=== PATIENT | female | born 1980 | race Caucasian/White ===

== ENCOUNTER → 2023-04-07 10:28 | Outpatient (REF) | payer OTHER, SELFPAY | LOC: RCS 10:28 | PROVIDERS: ATTENDING PHYSICIAN Internal Medicine Cardiovascular Disease; FAMILY PHYSICIAN Nurse Practitioner Family | DX: R00.2 Palpitations (principal) | CPT/HCPCS: 93306 ==

== ENCOUNTER 2025-03-02 05:20 | Inpatient (IN) | payer OTHER, SELFPAY ==
[2025-03-01 23:59] VITALS: BP 124/70
[2025-03-02] VITALS (14 sets, daily range): BP systolic 93–119; BP diastolic 49–67; BMI 27.2
[2025-03-02 02:15] LABS: Hematocrit 22.4 % (37.0-47.0); Hemoglobin 7.5 g/dL (12.0-16.0); Mean Corp Hgb Conc. 33.5 g/dL (33.0-37.0); Mean Corpuscular Volume 89.2 fL (81.0-99.0); Nucleated Red Blood Cells % 0 %; Platelet Count 280 10^3/uL (130-400); Red Cell Dist. Width 13.0 % (11.5-14.5)
[2025-03-02 02:20] LABS: APTT 36.0 Sec (23.4-35.0)
[2025-03-02 02:29] LABS: COVID-19 Antigen Negative (Negative)
[2025-03-02 02:33] LABS: ALT (SGPT) 20 U/L (0-35); AST (SGOT) 25 U/L (14-36); Albumin 3.1 g/dl (3.5-5.0); Alkaline Phosphatase 70 U/L (38-126); Blood Urea Nitrogen 15 mg/dl (7-17); Calcium 8.7 mg/dl (8.4-10.2); Carbon Dioxide 23 mmol/L (22-30); Chloride 104 mmol/L (98-107); Glucose 114 mg/dl (70-99); Potassium 4.0 mmol/L (3.5-5.1); Sodium 133 mmol/L (135-145); Total Protein 5.5 g/dl (6.3-8.2); eGFR > 60.00
[2025-03-02] MEDS: TORADOL 30 MG IV (04:25)
[2025-03-02] MEDS: TYLENOL 1000 MG PO (04:25)
[2025-03-02] MEDS: NSS 1000 IV ×2 (04:27→09:04)
--- NOTE | 2025-03-02 04:32 | ED.GENMED ---
History of Present Illness
General
Chief Complaint: Post Operative Problem(s)
Source: patient and spouse
Exam Limitations: none
Time Seen by Provider: 03/02/25 03:58
Nursing documentation reviewed up to this point in time: agreed with
History of Present Illness
History of Present Illness:
HISTORY OF PRESENT ILLNESS
The patient is a 44-year-old female with history of breast cancer, who underwent bilateral mastectomy with ARNULFO flap reconstruction two weeks ago, February 13. She follows with specialists at [facility]. Postoperatively, she developed a fever around
the , reaching 101.8�F, which fluctuated between 99�F and 101.2�F. She experienced drainage from the right breast incision site, described as a significant amount of pus tonight. The patient has been on Bactrim since Thursday, prescribed by her
surgeon due to suspected infection, but the fever persists. The drainage had been fluctuating, recently increasing in volume prior to evaluation. The patient describes the entire right breast as red and draining. The patient has not experienced
coughing but reports starting to feel congested.
For pain she has been taking gabapentin, ibuprofen, Tylenol. Has had no pain medications since arrival to the ED.
She has also been taking Eliquis postoperatively as she has a prior history of postoperative DVT.
Past History
Past History
ED Past Medical History: Cancer (Breast cancer) and Other (Postoperative DVT)
ED Past Surgical History: Gynecological (Bilateral mastectomy with ARNULFO flap reconstruction February 13, 2025)
Social History
Tobacco: Non-smoker
Alcohol: None
Personal:
Living: with family
Family History
Family History: Other (Noncontributory)
Phy Exam
Physical Exam
Physical Exam:
GENERAL: 44-year-old woman appears her stated age, awake and alert, appears mildly uncomfortable, easily communicative. is accompanying.
EYE: anicteric
NECK: Supple, nontender, no meningismus, no significant adenopathy.
ENT: posterior pharynx is clear, oral mucosa is moist. TM clear b/l, nares patent.
CARDIAC: Regular rate and rhythm. no murmur.
BREAST: Bilateral breast mastectomies with reconstruction with dry and intact incisions mid to inferior aspect of bilateral breasts. There is no active drainage. The right breast is globally erythematous, warm to touch and moderately tender to
palpation. There is no palpable fluctuance nor palpable mass.
LUNGS: Clear breath sounds bilaterally, no acute respiratory distress, no wheezes/rales/rhonchi
ABDOMEN: Soft, nondistended, without focal tenderness, no r/g, no cvat. normoactive BS.
NEUROLOGICAL: Alert and oriented x3, no focal neuro deficits. Gait is steady.
SKIN: Hot to touch and dry, normal color, skin intact. No rash.
MUSCULOSKELETAL: No C/C/E. peripheral pulses are full and equal b/l. No palpable tenderness.
PSYCH: Normal and appropriate interaction.
Sepsis
Sepsis Screening
Sepsis Assessment: Sepsis
Sepsis Screen
Sepsis Screen: Sepsis
Date: 03/02/25
Time: 07:09
Course
Orders/Labs/Results
Orders:
Orders
03/02/25 01:52
Complete Blood Count/With Diff Urgent
Comprehensive Metabolic Panel Urgent
Lactic Acid Urgent
PTT Urgent
Blood Culture Urgent
BERNIE Source: Blood/Venous
Specimen Description:
03/02/25 02:01
COVID-19 Antigen Urgent
Source: Nasal Swab
Influenza A+B Rapid Molecular Urgent
BERNIE Source: Nasal Swab
Specimen Description:
03/02/25 04:18
0.9% Sodium Chloride 1000 ml [Nss] 1,000 ml IV BOLUS
Acetaminophen [Tylenol] 1,000 mg PO NOW STA
Ketorolac [Toradol] 30 mg IV NOW STA
03/02/25 04:33
Blood Culture Q30M
BERNIE Source: Blood/Venous
Specimen Description:
03/02/25 04:59
Vancomycin [Vancocin] 2,000 mg 0.9% Sodium Chloride 500 ml [Nss] 500 ml IV NOW
03/02/25 05:04
Admit/Transfer Patient As Directed
Co-Sign Provider:
Level of Care: Inpatient admission
Assign to:: Medical/Surgical
Physician / Group: Silva
Diagnosis: cellulitis, post op infection
Reason for Hospitalization: cellulitis, post op infection
Expected length of stay greater than two midnights?: Yes
ELOS- Estimated Length of Stay in days: 2
I certify the patient meets the requirements for IP care: Yes
03/02/25 05:05
Code Status As Directed
Resuscitation Status: Full Code
PRN Pain Medication Management As Directed
May give lesser potent ordered pain med per pt: Yes
preference::
Protocol:: Medication orders for pain may be administered in a
manner that supports deferring to patient preference
when the pt is:
- Requesting an ordered lesser potent pain medication.
Least to most potent pain medications are defined
as: acetaminophen < NSAID < tramadol < opioids
(morphine, oxycodone, hydromorphone).
- Requesting a lesser dose of the same medication IF
ORDERED.
- Requesting a less intrusive route of administration
if both routes are prescribed by the provider (PO <
IV).
03/02/25 05:32
0.9% Sodium Chloride 1000 ml [Nss] 1,000 ml IV 100 mls/hr
Acetaminophen [Tylenol] 650 mg PO Q4HPRN PRN
Bisacodyl [Dulcolax] 10 mg RECTAL [id number] PRN
Docusate W/Senna [Senokot-S] 1 tablet PO BIDPRN PRN
HYDROmorphone [Dilaudid] 0.5 mg IV Q4HPRN PRN
Ketorolac [Toradol] 10 mg IV Q6HPRN PRN
Ondansetron Injectable [Zofran] 4 mg IV Q6HPRN PRN
Polyethylene Glycol Powder [Miralax] 17 grams PO DAILYPRN PRN
VANCOMYCIN Pharmacy to Dose [VANCOCIN Pharmacy to Dose] 1 each Pharmacy To Prepare [Call Pharmacy To Prepare] 0 ml IV PER PROTOCOL
03/02/25 05:32
Activity As Directed
Activity Level: With Assistance
Vital Signs As Directed
Frequency: Per unit guidelines
DX Deep Vein Thrombosis Video Routine
03/02/25 Breakfast
Regular
At Your Request: Full Participation
Does patient need a safe tray?: No
Basic Metabolic Panel IN AM
Complete Blood Count/No Diff IN AM
03/02/25 18:00
Enoxaparin Sodium [Lovenox] 40 mg SC QPM
Abnormal Lab Results
03/02/25
01:52
RBC 2.51 L 10^6/uL
(4.20-5.40)
Hgb 7.5 L g/dL
(12.0-16.0)
Hct 22.4 L %
(37.0-47.0)
Absolute Lymphs (auto) 1.1 L 10^3/uL
(1.2-3.4)
Absolute Monos (auto) 1.1 H 10^3/uL
(0.1-0.6)
Immature Gran % 0.6 H %
(0-0.5)
Lymphocytes % 16.4 L %
(20.5-51.1)
Monocytes % 16.6 H %
(1.7-9.3)
APTT 36.0 H Sec
(23.4-35.0)
Sodium 133 L mmol/L
(135-145)
Glucose 114 H mg/dl
(70-99)
Total Protein 5.5 L g/dl
(6.3-8.2)
Albumin 3.1 L g/dl
(3.5-5.0)
03/02/25 01:52
03/02/25 01:52
Vital Signs
Initial and Last Documented VS:
Initial Vital Signs
Temp Pulse Resp BP Pulse Ox
98.2 F 115 20 124/70 98
03/01/25 23:59 03/01/25 23:59 03/01/25 23:59 03/01/25 23:59 03/01/25 23:59
Last Documented Vital Signs
Temp Pulse Resp BP Pulse Ox
100.8 F H 110 20 111/59 100
03/02/25 00:00 03/02/25 04:00 03/02/25 04:00 03/02/25 04:00 03/02/25 04:34
MDM/Problems Addressed
Differential Diagnosis Includes:
DIFFERENTIAL DIAGNOSIS
The Differential Diagnosis includes, in no particular order and is not limited to:
1. Surgical site infection
2. Seroma formation
3. Abscess development
4. Cellulitis
5. Persistent post-surgical inflammation
6. Foreign body reaction
7. Hematoma
8. Antibiotic-resistant infection
9. Deep vein thrombosis
10. Allergic reaction to postoperative medications
MDM/Problems Addressed:
Postop infection right breast with persistent fever despite initiation of antibiotic 2-1/2 days ago
Significant drainage from right breast incision inferiorly this evening.
On exam, incisions are currently dry and intact.
There is global erythema, palpable heat and tenderness to the right breast consistent with cellulitis. Concern for infected seroma which has since drained versus abscess.
Labs show normal white blood cell count, moderate anemia at 7.5. Nothing in history to suggest symptomatic anemia, patient denies dizziness nor lightheadedness. Lactic acid is normal at 0.9.
There is however concern for continued fever despite oral antibiotics and thus has in essence failed oral antibiotics requiring initiation of IV antibiotics and hospital admission.
Chronic conditions affecting care: Cancer
*Pulse Oximetry
SaO2: 100
Oxygen Mode of Delivery: Room air
Patient hypoxic: no
*Critical Care Note
Total Time (30-74mins, 75-104mins- exclusive of procedures): Not Applicable
ED Attending Note
-
Portions of this chart may have been created with voice recognition software.� Occasional wrong word or��sound alike� substitutions may have occurred due to the inherent limitations of voice recognition software.
Discharge Plan
Departure
Patient Disposition: Admit
Date of Disposition: 03/02/25
Time of Disposition: 04:45
Admit to: Med/Surg
Admit to doctor: Silva
Presentation/result/management discussed w/ accepting MD/DO: Hospitalist
Condition: Fair
Discharge Problem:
Postoperative wound infection, Cellulitis of right breast
Interventions
Interventions:
[facility] Risk Assessment Tool Last Done: 03/02/25 00:00
*Risk Screen - Suicide (C-SSRS) Last Done: 03/01/25 23:59
ED-Skin Assessment Last Done: 03/02/25 02:22
--- NOTE | 2025-03-02 05:04 | HPS.HSE ---
Family Physician
-
Family Physician: INTERVIEWE UNKNOWN - PT NOT
Chief Complaint
-
Fever and wound drainage
History of Present Illness
This is a 44-year-old female with past medical history significant for breast cancer status post bilateral mastectomy and reconstructive surgery on February 13 presenting to the emergency department with ongoing fever redness and drainage from an
incision site of the right breast.
She had a double mastectomy with reconstructive surgery including flap reconstruction and material moved from the abdomen into the breast area. She reported that after the surgery she had good wound healing and did have some drainage. However
starting on Thursday she has not yet noticed fever redness and tenderness on the right breast. She was started on Bactrim after showing our pictures to physicians. She has been taking Bactrim since Thursday and despite this she has continued to have
fevers. She has been taking Tylenol and Motrin [id number] for pain and she had fevers breaking through these medications.
Surgery was done at [facility] by Dr. Stefani hawley (plastic surgeon), Dr. Lc Walter (breast surgeon). She has locally invasive stage I cancer, negative genetic markers and is not currently on any chemotherapy.
In the emergency department she had a Tmax of 100.8. Her blood pressure was stable at 115/60 with a pulse rate of 110 and oxygen saturation of 100% on room air. CBC shows a white count of 6.8, hemoglobin of 7.5 (no prior to compare) platelet count
of 280. Sodium was 1 titrated also electrolytes BUN and creatinine were all normal.
Medical History
Past Medical History
Past Medical History: Reports Cancer (History of breast cancer status post bilateral mastectomy with ARNULFO flap reconstruction on February 13), GERD and Other (DVT on apixaban)
Past Surgical History: Reports Orthopedic (Alcohol tunnel release, left-sided tongue labrum repair) and Other (Bilateral mastectomy)
Social History
Tobacco: Non-smoker
Alcohol: None
Drug: None
Personal:
Living: With Family
Family History
Family History: Not pertinent
Allergies / Home Medications
Allergies reflects when Allergies were last updated in [facility].
Home Medications with original date entered in [facility]
Allergy/Medication List:
Allergies
Allergy/AdvReac Type Severity Reaction Status Date / Time
No Known Allergies Allergy Verified 03/01/25 23:59
Home Medications
Eliquis 5 mg tablets, 5 mg p.o. twice daily
Gabapentin 200 mg tablets, 200 mg p.o. every 8 hours
Bactrim DS (800/160) tablet, 1 tablet p.o. twice daily,
Review of Systems
-
Constitutional: Reports Fever
EENT: Reports No Symptoms
Respiratory: Reports No Symptoms
Cardiac: Reports No Symptoms
Abdomen/GI: Reports No Symptoms
: Reports No Symptoms
Musculoskeletal: Reports No Symptoms
Skin: Reports Other (Erythema, no drainage from incision sites in the right lower breast)
Neurological: Reports No Symptoms
Endocrine: Reports No Symptoms
Hematologic/Lymphatic: Reports No Symptoms
Psych: Reports No Symptoms
Physical Exam
Vital Signs
Vital Signs
Temp Pulse Resp BP Pulse Ox
100.8 F H 110 20 111/59 100
03/02/25 00:00 03/02/25 04:00 03/02/25 04:00 03/02/25 04:00 03/02/25 04:34
Physical Exam
General: Well Developed, Well Nourished and No Apparent Distress
HEENT: NormoCephalic, Moist mucous membranes and Atraumatic
Respiratory: Clear
Cardiac: S1/S2 and Regular Rhythm; No Murmur or Rub
GI: Soft, Non Tender, Non Distended, Normal Bowel Sounds and Other (Her RIVER drain in the left lower quadrant draining serosanguineous fluid); No Organomegaly
Rectal: Deferred by Provider
Musculoskeletal: No Clubbing, No Cyanosis and No Edema
Skin: Lesions (About a 8 cm area of erythema on the right breast, the incision has generally good healing except small area where pus can be extruded with some pressure); No Rash
Neuro: AO x 3 and Nonfocal/grossly intact
Psych: Calm
Laboratory Results
-
03/02/25 01:52
03/02/25:
Laboratory Results
APTT 36.0 Sec (23.4-35.0) H 03/02/25:
Lactic Acid 0.9 mmol/L (0.7-2.0) 03/02/25:
Total Bilirubin 0.4 mg/dl (0.2-1.3) 03/02/25:
AST 25 U/L (14-36) 03/02/25:
ALT 20 U/L (0-35) 03/02/25:
Alkaline Phosphatase 70 U/L (38-126) 03/02/25:
Data Reviewed
-
Lab Data: Labs Reviewed by me
Old Records: Reviewed
Impression/Plan
-
IMPRESSION:
44-year-old with history of breast cancer status post bilateral mastectomy, negative margins, negative lymph nodes, had a deep flap reconstruction on 02/13, coming in with fever, redness tenderness swelling and increased drainage from an incision
site on the right breast concerning for cellulitis/wound infection. Febrile 100.8 here, labs fine. Hemodynamically stable and nontoxic-appearing.
PLAN:
Cellulitis -status post 3 days of Bactrim
-Admit to MedSurg
�, MRSA swab
�, Blood cultures
� Wound culture
� Started on vancomycin which we will continue for now
� Pain control
� Breast surgical consultation in a.m. (no one wagon winder overnight and surgery was performed at [facility])
H/O DVT
- continue apixaban
Code Status - Full code
[2025-03-02] MEDS: DILAUDID 0.5 MG IV ×2 (06:34→13:39)
[2025-03-02] MEDS: VANCOCIN 540 MG IV (06:36)
--- NOTE | 2025-03-02 08:06 | PHA.VAN.IN ---
Assessment
- Assessment
Renal Function: Unknown baseline
Maximum Temperature: 100.8
Minimum Temperature: 98.2
AUC Dosing Plan
- Empiric Dosing
Initial / Loading Dose: Vanc 2gm 03/02 at 0550
Maintenance Regimen: Vanc 1gm IV q12H beginning 03/02 1800
Estimated AUC (mcg*h/mL): 460
Estimated Peak (mcg*h/mL): 29.3
Estimated Trough (mcg/ml): 11.5
Estimated Half Life (H): 8.2
- Monitoring
No levels ordered at this time: Consider levels after 03/03 1800 dose
Pharmacokinetics Vancomycin I
- -
Patient Age: 44
Patient Sex: Female
Vancomycin Day #: 1
Indication: Skin And Soft Tissue
Requesting Provider: Silva
Height / Weight:
Height 5 ft 6 in
Actual Weight 76.289 kg
IBW in k.3
Adjusted BW in k.1
Pertinent Past Medical History: Breast CA s/p bilateral masectomy 02/13
- Vital Signs / Lab Results
Temp Pulse Resp BP Pulse Ox
98.9 F 90 16 107/62 95
03/02/25 07:28 03/02/25 07:28 03/02/25 07:28 03/02/25 07:28 03/02/25 07:28
Lab Results - Hematology
03/02/25
01:52
WBC 6.8
Lab Results - Chemistry
03/02/25
01:52
BUN 15
Creatinine 0.7
Albumin 3.1 L
03/02/25
01:52
Lactic Acid 0.9
Microbiology Results
03/02/25 02:01 Influenza Types A & B (MITRA) - Final
Nasal Swab Negative for Influenza A & B, NAAT
Negative results must be combined with clinical observations
and patient history.
Nucleic Acid Amplification test (NAAT)performed on the
[employer] platform.
[2025-03-02] MEDS: ELIQUIS 5 MG PO ×2 (09:04→19:52)
[2025-03-02] MEDS: NEURONTIN 200 MG PO ×3 (09:04→21:42)
[2025-03-02 09:52] LABS: Hematocrit 19.2 % (37.0-47.0); Hemoglobin 6.5 g/dL (12.0-16.0); Mean Corp Hgb Conc. 33.9 g/dL (33.0-37.0); Mean Corpuscular Volume 91.9 fL (81.0-99.0); Platelet Count 257 10^3/uL (130-400); Red Cell Dist. Width 13.2 % (11.5-14.5)
[2025-03-02 10:12] LABS: Blood Urea Nitrogen 13 mg/dl (7-17); Calcium 8.2 mg/dl (8.4-10.2); Carbon Dioxide 21 mmol/L (22-30); Chloride 106 mmol/L (98-107); Estimated Creatinine Clearance 97 ml/min; Glucose 96 mg/dl (70-99); Potassium 3.9 mmol/L (3.5-5.1); Sodium 132 mmol/L (135-145); eGFR > 60.00
--- NOTE | 2025-03-02 11:13 | W.PN.HOSP.TC ---
Addendum entered and electronically signed by Rudolph Malloy MD 03/02/25 12:03:
As per discussion with Dr. Hawthorne will cancel CT Chest and check R breast U/S.
Original Note:
Today's Communication/Plan
-
see plan
Assessment / Plan
Assessment / Plan
Patient seen and examined with LUCIANA Aguirre present at bedside as a filters assembler for the entirety of the interview and physical exam (pt's mother also present).
Gen: NAD, AAOx3.
Eyes: EOMI, PERRLA, no scleral icterus.
Neck: supple.
CV: RRR, +S1/S2, no m/r/g.
Resp: CTAB, no rales, wheezes, or rhonchi.
Abd: +BS, soft, NT, ND
Skin: No rashes.
Breast exam: surgical incisions bilaterally intact. Patient has some scant, serous crusting on the right breast. Very minimal erythema of the right breast.
Neuro: CN 2-12 intact, non-focal.
Psych: Normal mood and affect.
Anemia:
-likely a combination of blood loss anemia from surgery a couple of weeks ago (not acute), anemia of chronic disease, and dilutional
-currently no evidence of active bleeding
-transfuse 2U pRBCs
-check Fe studies
R breast cellulitis with drainage:
-check CT Chest w/wo contrast
-cont Vanco, add Zosyn
-c/s ID
-with discuss the case with Rafael Maurer attendings on 03/03/25
h/o DVT:
-cont Eliquis
FULL/Eliquis
Total time spent on this encounter today = 62 min.
Anticipated Discharge: 24 - 48 hours
Subjective/Interval History
-
Date of Service: March 02, 2025
Patient reports drainage from her right breast surgical site. Denies chest pain or shortness of breath.
Objective Data
-
Labs:
Laboratory Results
03/02/25 03/02/25
01:52 09:13
WBC 6.8 4.2 L
Hgb 7.5 L 6.5 L*
Hct 22.4 L 19.2 L*
Plt Count 280 257
APTT 36.0 H
Sodium 133 L 132 L
Potassium 4.0 3.9
Chloride 104 106
Carbon Dioxide 23 21 L
BUN 15 13
Creatinine 0.7 0.7
Glucose 114 H 96
Calcium 8.7 8.2 L
Total Bilirubin 0.4
AST 25
ALT 20
Alkaline Phosphatase 70
Vital Signs:
Vital Signs
Temp Pulse Resp BP Pulse Ox
98.9 F 90 16 107/62 95
03/02/25 07:28 03/02/25 07:28 03/02/25 07:28 03/02/25 07:28 03/02/25 07:28
[2025-03-02] MEDS: ZOSYN 100 IV ×2 (11:24→21:37)
[2025-03-02 13:29] LABS: Iron 21 ug/dl (37-170)
[2025-03-02 13:38] LABS: Total Iron Binding Capacity 289 ug/dl (265-497)
--- NOTE | 2025-03-02 14:38 | CON.ID ---
Consultation
-
Date/Time Consultation Requested: 03/02/25 10:52
Date/Time Consultation Performed: 03/02/25 14:39
Requesting Provider: Dr Malloy
Performing Provider: Dr Baig
Reason for Consultation: R breast cellulitis
Chief Complaint / Past History
Chief Complaint
Fever and wound drainage
History of Present Illness
Ms Askew is a 44 year old female with past medical history significant for breast cancer status post bilateral mastectomy and reconstructive surgery on February 13 presenting to the emergency department with ongoing fever redness and drainage from
an incision site of the right breast.
She had a double mastectomy with reconstructive surgery including flap reconstruction and material moved from the abdomen into the breast area. She reported that after the surgery she had good wound healing and did have some drainage. However
starting on Thursday she has noticed fever redness and tenderness on the right breast. She was started on Bactrim after showing our pictures to physicians. She has been taking Bactrim since Thursday and despite this she has continued to have fevers.
She has been taking Tylenol and Motrin [id number] for pain and she had fevers breaking through these medications.
Surgery was done at [facility] by Dr. Stefani hawley (plastic surgeon), Dr. Lc Walter (breast surgeon). She has locally invasive stage I cancer, negative genetic markers and is not currently on any chemotherapy.
In the emergency department she had a Tmax of 100.8. Her blood pressure was stable at 115/60 with a pulse rate of 110 and oxygen saturation of 100% on room air. CBC shows a white count of 6.8, no L shift, hemoglobin of 7.5, platelet count of 280.
Na 133, cr 0.7, lactic acid 0.9, t bili 0.4, ast 25, alt 20, alk phos 70, covid ag negative, a breast US has been done - read pending, wound culture with few GPCs, blood cultures x2 in progress, patient on vancomycin and zosyn, ID consulted for
assistance with management.
Past History
Additional Past Medical History:
History of breast cancer status post bilateral mastectomy with ARNULFO flap reconstruction on February 13), GERD and Other (DVT on apixaban)
Additional Past Surgical History:
carpel tunnel release, left-sided tongue labrum repair) and Other (Bilateral mastectomy
Allergy History:
No Known Allergies Allergy (Verified 03/01/25 23:59)
Medications Reviewed: Yes
Social History
Tobacco: Non-Smoker
Alcohol: None
Drug: None
Family History
Family History: Not Pertinent
Review of Systems
Review of Systems
Constitutional: Reports Fever
EENT: Reports No Symptoms
Respiratory: Reports No Symptoms
Cardiac: Reports No Symptoms
Abdomen/GI: Reports No Symptoms
: Reports No Symptoms
Musculoskeletal: Reports No Symptoms
Skin: Reports Other (Erythema, no drainage from incision sites in the right lower breast)
Neurological: Reports No Symptoms
Endocrine: Reports No Symptoms
Hematologic/Lymphatic: Reports No Symptoms
Psych: Reports No Symptoms
Vital Signs
Temp Pulse Resp BP Pulse Ox
98.2 F 90 16 107/62 95
03/02/25 13:37 03/02/25 07:28 03/02/25 07:28 03/02/25 07:28 03/02/25 07:28
Physical Exam
Physical Exam
Constitutional: No Acute Distress
Cardiovascular: Regular Rate and S1/S2; Negative Murmur or Rub
Pulmonary: Clear and Symmetric; Negative Wheezes, Rales or Rhonchi
Gastrointestinal: Soft, Non Tender, Non Distended and Normal Bowel Sounds
Skin: Warm and Dry; Negative Rash or Jaundice
Wound: Other (right breast inferior surgical sit with copious purulent drainage)
Lab / Diagnostic Study Results
03/02/25 09:13
03/02/25 09:13
Abs Immat Gran (auto) 0.0 10^3/uL (0-0.05) 03/02/25 01:52
Absolute Neuts (auto) 4.4 10^3/uL (1.4-6.5) 03/02/25 01:52
Absolute Lymphs (auto) 1.1 10^3/uL (1.2-3.4) L 03/02/25 01:52
Absolute Monos (auto) 1.1 10^3/uL (0.1-0.6) H 03/02/25 01:52
Absolute Basos (auto) 0.0 10^3/uL (0-0.2) 03/02/25 01:52
Immature Gran % 0.6 % (0-0.5) H 03/02/25 01:52
Neutrophils % 65.1 % (42.2-75.2) 03/02/25 01:52
Lymphocytes % 16.4 % (20.5-51.1) L 03/02/25 01:52
Monocytes % 16.6 % (1.7-9.3) H 03/02/25 01:52
Eosinophils % 0.9 % (0-6) 03/02/25 01:52
Basophils % 0.4 % (0-2) 03/02/25 01:52
Lactic Acid 0.9 mmol/L (0.7-2.0) 03/02/25 01:52
Microbiology Results
Micro:
03/02/25 05:36 Wound Culture - Pending
Breast - Right Gram Stain - Preliminary
03/02/25 04:33 Blood Culture - Pending
Blood/Venous
03/02/25 02:01 Influenza Types A & B (MITRA) - Final
Nasal Swab Negative for Influenza A & B, NAAT
Negative results must be combined with clinical observations
and patient history.
Nucleic Acid Amplification test (NAAT)performed on the
[employer] platform.
03/02/25 01:52 Blood Culture - Pending
Blood/Venous
Assessment / Plan
Cellulitis and suspected abscess of R breast
02/13/25 bilateral mastectomy and reconstruction
Anemia
- wound culture in progress
- blood cultures x2 in progress
- breast US done - close proximity to a transverse surgical incision, there is a complex echogenic fluid collection measuring 4.9 x 2.9 x 6 cm
- warm compresses to facilitate drainage as feasible
- agree with vancomycin and zosyn for now pending cultures
- hospitalist Dr Malloy is reaching out to her surgeon to review findings; I would recommend some drainage to maximize the efficacy of antibiotics
[2025-03-02] MEDS: FERRLECIT 110 MG IV (15:07)
--- NOTE | 2025-03-02 15:08 | W.PN.UPDATE ---
Update Note
Progress Note Update
R Breast U/S:Along the inferior margin of the right breast, in close proximity to a transverse surgical incision, there is a complex echogenic fluid collection measuring 4.9 x 2.9 x 6 cm. There is otherwise generalized soft tissue edema and
swelling. Although exact etiology uncertain, with possible considerations including postsurgical complex seroma or hematoma, in the proper clinical setting, this could represent infection/abscess.
Pt updated with these findings.
A/P:
Warm compresses, cont abx. Will attempt to reach the pt's surgeon (calling now).
[2025-03-02 15:52] LABS: Ferritin 137.0 ng/ml (6.24-137)
[2025-03-02] MEDS: TYLENOL 650 MG PO (16:26)
--- NOTE | 2025-03-02 17:13 | W.PN.UPDATE ---
Update Note
Progress Note Update
The patient has been accepted in transfer to [place] ([facility] and NOT [facility]) under the service of Dr. Silvino Summers.
[2025-03-02] MEDS: TORADOL 10 MG IV (19:52)
[2025-03-02] MEDS: VANCOCIN 200 IV (22:34)
[2025-03-03 00:12] VITALS: BP 93/56
[2025-03-03] MEDS: MELATONIN 5 MG PO (00:17)
[2025-03-03 00:31] VITALS: BP 104/63
[2025-03-03] MEDS: ZOSYN IV (01:28)
[2025-03-03 03:15] VITALS: BP 105/65
[2025-03-03] MEDS: TORADOL 10 MG IV ×2 (03:17→10:25)
[2025-03-03] MEDS: DILAUDID 0.5 MG IV (04:27)
[2025-03-03] MEDS: ZOSYN 100 IV ×2 (04:27→08:12)
[2025-03-03] MEDS: VANCOCIN 200 IV (06:36)
[2025-03-03 07:25] VITALS: BP 122/60
[2025-03-03] MEDS: NEURONTIN 200 MG PO (08:12)
--- NOTE | 2025-03-03 09:07 | W.PN.HOSP.TC ---
Today's Communication/Plan
-
transfer to [facility]
Assessment / Plan
Assessment / Plan
Gen: NAD, AAOx3.
Eyes: EOMI, PERRLA, no scleral icterus.
Neck: supple.
CV: remains RRR, +S1/S2, no m/r/g.
Resp: remains CTAB, no rales, wheezes, or rhonchi.
Abd: +BS, soft, NT, ND
Skin: note, breast exam deferred, no rashes.
Neuro: CN 2-12 intact, non-focal.
Psych: Normal mood and affect.
R breast U/S: Along the inferior margin of the right breast, in close proximity to a transverse surgical incision, there is a complex echogenic fluid collection measuring 4.9 x 2.9 x 6 cm. There is otherwise generalized soft tissue edema and
swelling. Although exact etiology uncertain, with possible considerations including postsurgical complex seroma or hematoma, in the proper clinical setting, this could represent infection/abscess.
Anemia:
-likely a combination of blood loss anemia from surgery a couple of weeks ago (not acute), anemia of chronic disease, dilutional, and Fe deficiency
-currently no evidence of active bleeding
-s/p 2U pRBCs
-cont IV Fe
R breast cellulitis with drainage:
-R breast U/S above
-cont Vanco/Zosyn as per ID
-for transfer to [facility] for drainage
h/o DVT: cont Eliquis
Hyponatremia, mild
FULL/Eliquis
Pt has been accepted at [facility].
Total time spent on d/c = 31 min. This included today's physical exam, progress note, review of laboratory and diagnostic data, preparation of discharge documents and prescriptions, and discussions about the pt's hospital course and discharge plan
with the patient and other medical numerical control operator involved in the patient's care.
Anticipated Discharge: Today
Subjective/Interval History
-
Date of Service: March 03, 2025
No new complaints.
Objective Data
-
Labs:
Laboratory Results
03/03/25
07:55
WBC Pending
Hgb Pending
Hct Pending
Plt Count Pending
Sodium Pending
Potassium Pending
Chloride Pending
Carbon Dioxide Pending
BUN Pending
Creatinine Pending
Glucose Pending
Calcium Pending
Vital Signs:
Vital Signs
Temp Pulse Resp BP Pulse Ox
98.4 F 75 18 122/60 96
03/03/25 07:25 03/03/25 07:25 03/03/25 07:25 03/03/25 07:25 03/03/25 07:25
I&O
03/02/25 03/03/25 03/04/25
06:59 06:59 06:59
Intake Total 1900 / 1900 100 / 100
Output Total 70 / 70
Balance 1830 / 183 100 / 100
[2025-03-03 09:26] LABS: Hematocrit 23.6 % (37.0-47.0); Hemoglobin 7.6 g/dL (12.0-16.0); Mean Corp Hgb Conc. 32.2 g/dL (33.0-37.0); Mean Corpuscular Volume 91.5 fL (81.0-99.0); Platelet Count 296 10^3/uL (130-400); Red Cell Dist. Width 14.9 % (11.5-14.5)
[2025-03-03 09:31] LABS: Blood Urea Nitrogen 10 mg/dl (7-17); Calcium 8.7 mg/dl (8.4-10.2); Carbon Dioxide 23 mmol/L (22-30); Chloride 107 mmol/L (98-107); Estimated Creatinine Clearance 113 ml/min; Glucose 120 mg/dl (70-99); Potassium 4.1 mmol/L (3.5-5.1); Sodium 134 mmol/L (135-145); eGFR > 60.00
[2025-03-03] MEDS: ELIQUIS 5 MG PO (09:45)
--- NOTE | 2025-03-03 09:57 | PHA.VAN.FU ---
Vancomycin Assessment / Plan
- Assessment
Renal Function: Stable
WBC's are: Trending Down
In the past 24 hrs, patient has been: Afebrile
Concomitant Antimicrobials: piperacillin-tazobactam
- Dosing Plan
Continue: vancomycin 1000mg Q12H
- Monitoring Plan
Peak Level: 12.26 @2100
Trough Level: 12.27 @0530
- Follow Up
Pharmacy will continue to follow.
Vancomycin Follow UP
- -
Patient Age: 44
Patient Sex: Female
Vancomycin Day #: 2
Indication: Skin And Soft Tissue
Requesting Provider: Silva
Height / Weight:
Height 5 ft 6 in
Actual Weight 76.289 kg
IBW in k.3
Adjusted BW in k.1
Pertinent Past Medical History: Breast CA s/p bilateral masectomy 02/13
- Vital Signs / Lab Results
Temp Pulse Resp BP Pulse Ox
98.4 F 75 18 122/60 96
03/03/25 07:25 03/03/25 07:25 03/03/25 07:25 03/03/25 07:25 03/03/25 07:25
Lab Results - Hematology
03/02/25 03/02/25 03/03/25
01:52 09:13 07:55
WBC 6.8 4.2 L 3.7 L
Lab Results - Chemistry
03/02/25 03/02/25 03/03/25
01:52 09:13 07:55
BUN 15 13 10
Creatinine 0.7 0.7 0.6
Estimated Creat Clear 97 113
Albumin 3.1 L
03/02/25
01:52
Lactic Acid 0.9
Microbiology Results
03/02/25 05:36 Wound Culture - Preliminary
Breast - Right Viridans Streptococcus Group
Gram Stain - Preliminary
03/02/25 04:33 Blood Culture - Preliminary
Blood/Venous No Growth in 24 hours- Final report to follow
03/02/25 01:52 Blood Culture - Preliminary
Blood/Venous No Growth in 24 hours- Final report to follow
03/02/25 02:01 Influenza Types A & B ([facility]) - Final
Nasal Swab Negative for Influenza A & B, NAAT
Negative results must be combined with clinical observations
and patient history.
Nucleic Acid Amplification test (NAAT)performed on the
[employer] platform.
[2025-03-03] MEDS: MIRALAX 17 GRAMS PO (10:25)
[2025-03-03 11:17] VITALS: BP 107/63
[2025-03-03] MEDS: DULCOLAX 10 MG RECTAL (11:56)
--- NOTE | 2025-03-03 12:27 | PTCARENOTE ---
report called to [phone] at [facility]. report given to receiving LUCIANA Hancock. 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 RN requested to leave current L AC 20G IV intact for tx. VSS.
--- NOTE | 2025-03-03 12:35 | CM ---
patient seen at bedside with family
IA completed --- Patient to be transferred to [facility] today at 1pm
past medical history significant for breast cancer status post bilateral mastectomy and reconstructive surgery on February 13
lives with in 2 story home, flight stairs to bed/bath
PLOF: independent
has had vn with [facility], no rehab
PLAN: Transfer to [facility] today at 1pm
ambulance transport
--- NOTE | 2025-03-03 13:03 | W.DCSUMMARY ---
Discharge Summary
Discharge Data
Date of Admission: 03/02/25
Date of Discharge: 03/03/25
-
Pending Results: No
Hospital Course
Primary diagnoses:
Right breast cellulitis with drainage and fluid collection
Secondary diagnoses:
Anemia, likely a combination of blood loss anemia from surgery a couple of weeks ago (not acute), anemia of chronic disease, dilutional, and Fe deficiency
h/o deep vein thrombosis
Hyponatremia
Consults:
Infectious disease
Imaging:
R breast U/S: Along the inferior margin of the right breast, in close proximity to a transverse surgical incision, there is a complex echogenic fluid collection measuring 4.9 x 2.9 x 6 cm. There is otherwise generalized soft tissue edema and
swelling. Although exact etiology uncertain, with possible considerations including postsurgical complex seroma or hematoma, in the proper clinical setting, this could represent infection/abscess.
44 y/o F who presented with CCs fever and drainage from R breast as outlined in the H&P done on admission. Hospital course by problem list:
R breast cellulitis with drainage: R breast U/S above. The patient was on Vanco/Zosyn as per ID. She was transferred to [facility] for drainage of her R breast collection by her primary surgical team.
Anemia: This was likely a combination of blood loss anemia from surgery a couple of weeks ago (not acute), anemia of chronic disease, dilutional, and Fe deficiency. The patient had no evidence of active bleeding. She received 2 units of packed red
blood cells as well as IV iron.
Discharge Plan
-
Patient Disposition: Acute Care Hospital
Discharge Orders:
Discharge Patient (As Directed); Ordered 03/02/25
Ordered By: Rudolph Malloy
Discharge Date and Time
Print Language: PERSIAN
== END 2025-03-03 13:23 | disposition short-term general hospital (02) | DRG 863 ==
LOC: 4 EAST ACU 05:20
PROVIDERS: ADMITTING PHYSICIAN Internal Medicine; ATTENDING PHYSICIAN Internal Medicine; CONSULT PHYSICIAN Student in an Organized Health Care Education/Training Program; EMERGENCY PHYSICIAN Emergency Medicine
PROC: 30233N1 Transfusion of Nonautologous Red Blood Cells into Peripheral Vein, Percutaneous Approach (ICD-10-PCS; 2025-03-02)
DX: T81.41XA Infection following a procedure, superficial incisional surgical site, initial encounter (principal); E87.1 Hypo-osmolality and hyponatremia; C50.919 Malignant neoplasm of unspecified site of unspecified female breast; K21.9 Gastro-esophageal reflux disease without esophagitis; D50.9 Iron deficiency anemia, unspecified; D63.8 Anemia in other chronic diseases classified elsewhere; N61.0 Mastitis without abscess; Y83.8 Other surgical procedures as the cause of abnormal reaction of the patient, or of later complication, without mention of misadventure at the time of the procedure; Y92.9 Unspecified place or not applicable; Z60.2 Problems related to living alone; Z90.13 Acquired absence of bilateral breasts and nipples; Z86.718 Personal history of other venous thrombosis and embolism; Z79.01 Long term (current) use of anticoagulants; Z11.52 Encounter for screening for COVID-19
CPT/HCPCS: 76642; 80048; 80053; 82728; 83540; 83550; 83605; 85025; 85027; 85730; 86850; 86900; 86901; 86920; 87040; 87070; 87147; 87205; 87502; 87811; 99285; J2916; P9016